=== PATIENT | female | born 1990 | race Caucasian/White ===

== ENCOUNTER 2016-10-27 20:41 | Emergency (ER) | payer OTHER ==
[~2016-10-27] VITALS: Ht 167.6 cm; Wt 68.2 kg
[2016-10-27] MEDS ORDERED: 0.9% Sodium Chloride 1,000 ML IV ONE (20:51)
--- NOTE | 2016-10-27 20:52 | ED.REPORT ---
HPI-General Illness Date of Service Oct 27, 2016 ED Provider: Shailesh Umanzor MD Pt is a 26 y/o female w/ a hx of severe autism, Angelman syndrome, presenting to the ED with caretakers due to persistent vomiting onset 1900 today. The patient initially was spitting which developed into vomiting. They report signs of associated BOSE. They deny diarrhea, hematemesis, fever, chills. They witnessed that she was holding her back earlier. There is a history of UTI's which are not consistent with today's symptoms in any way. They deny sick contacts, decreased appetite, decreased PO fluid intake. Personal history limited secondary to mental status. Nursing Notes Stated Complaint: VOMITING Nursing Notes Reviewed: Yes Allergies: Coded Allergies: No Known Allergies (Unverified Allergy, Unknown, 04/27/15) Scheduled PRN Ondansetron ODT (Zofran ODT) 4 Mg Tablet 4 MG PO Q4H PRN PRN For Nausea General Time Seen by MD: 20:49 Chief Complaint Vomiting Hx Obtained From: Patient, Nozzle Worker Arrived By: Walk-in Sudden in Onset?: No Onset Occurred: 1 - 4 hours ago Symptom Duration: Since onset Location: : Head Quality: Aching Severity: Current: Mild Severity: Maximum: Mild Past Medical History Past Medical History Angelman syndrome, ADHD Severe autism Past Surgical History Denies Smoking History Unknown if Ever Smoker Social History Lives in a house by herself with Nozzle Worker involvement Ambulatory Status Independent Review of Systems Full Review of Systems Constitutional: Denies: Chills, Fever Cardiovascular: Denies: Chest pain, Dyspnea on exertion GI: Reports: Nausea, Vomiting, Denies: Diarrhea Female: Denies: Dysuria, Urinary frequency Musculoskeletal: Reports: Back pain Neurologic: Reports: Headache, Denies: Change LOC Physical Exam Vital Signs Vital Signs Date Time Temp Pulse Resp B/P Pulse Ox O2 Delivery O2 Flow Rate FiO2 10/27/16 22:50 36.8 60 18 130/60 98 Room Air 10/27/16 21:44 128/51 10/27/16 20:57 36.9 52 20 99 Room Air Initial VS: Reviewed, Vital signs normal Head / Eyes: Atraumatic, Normocephalic, PERRL ENT: Mucous membranes moist, Conjunctiva normal, No scleral icterus Neck: Supple, Full range of motion Respiratory: Breath sounds normal, Clear to auscultation, No respiratory distress Cardiovascular: Regular rate & rhythm, Heart sounds normal, Intact distal pulses Extremities: Vascular intact, Neuro intact, No swelling, No tenderness Skin: Warm, Dry, No cyanosis Psychiatric: Mood/affect normal, Behavior normal General/Constitutional: Awake, Alert, No acute distress, Not toxic appearing Severely autistic Abdomen: Atraumatic, Soft, Non-tender, No guarding, No rebound, No distention Tolerates firm palpation over all quadrants with no significant signs of distress or tenderness Neurologic: No motor deficits NEURO: Severely autistic, at baseline according to caretakers Interpretation & Diagnostics Lab Results Interpretation Result Diagram: 10/27/16213910/27/16 214 Test 10/27/16 21:40 White Blood Count 19.3th/mm3 (3.8-10.1) Red Blood Count 4.91mil/mm3 (3.90-5.20) Hemoglobin 14.6g/dL (12.0-15.6) Hematocrit 42.8% (35.0-46.0) Mean Corpuscular Volume 87.2fL (81-100) Mean Corpuscular Hemoglobin 29.7pg (27.0-35.0) Mean Corpuscular Hemoglobin Concent 34.1% (32.0-37.0) Red Cell Distribution Width 12.8% (12.3-15.4) Platelet Count 386bil/L (150-400) Neutrophils (%) (Auto) 84.2% (40-74) Lymphocytes (%) (Auto) 7.1% (14-46) Monocytes (%) (Auto) 8.0% (4-12) Eosinophils (%) (Auto) 0.3% (0-5) Basophils (%) (Auto) 0.1% (0-3) Sodium Level 138mEq/L (134-144) Potassium Level 4.3mEq/L (3.5-5.2) Chloride Level 102mEq/L (97-108) Carbon Dioxide Level 18mmol/L (18-29) Blood Urea Nitrogen 16mg/dL (6-20) Creatinine 0.67mg/dL (0.57-1.00) Estimat Glomerular Filtration Rate 151mL/min (>59) Glucose Level 132mg/dL (60-99) Calcium Level 9.2mg/dL (8.5-10.1) Magnesium Level 1.9mg/dL (1.6-2.6) Total Bilirubin 0.4mg/dL (0.0-1.2) Aspartate Amino Transf (AST/SGOT) 25U/L (0-50) Alanine Aminotransferase (ALT/SGPT) 18U/L (0-32) Alkaline Phosphatase 64U/L (25-150) Total Protein 7.8g/dL (6.4-8.4) Albumin 4.5g/dL (3.4-5.0) Lipase 59U/L (13-60) Re-Eval/Medical Decision Med Decision/Clinical Course Pt is a 26 y/o female w/ a hx of severe autism, Angelman syndrome, presenting to the ED with caretakers due to persistent vomiting onset 1900 today. At baseline the patient is unable to provide any history and nontender to tolerate with examination or laboratory draw. Here in the emergency department she is afebrile with stable vital signs and in no apparent distress. After receiving some Zofran she tolerated PO, was smiling, interactive and without any evidence of distress or discomfort. Laboratory studies were obtained including CBC and CMP which were unremarkable except for a leukocytosis of 19. I conducted a thorough examination of the patient and found no evidence of abdominal tenderness, findings suggestive of acute surgical abdominal process or evidence of soft tissue infection. Abdominal examination was completely benign and she tolerated firm palpation in all 4 quadrants while smiling. Given her leukocytosis I strongly considered infectious processes however she was without any meningismus or fever suggestive of meningitis. I strongly considered urinary tract infection however knitted goods shaper stated that the past UTIs she is clutched at her crotch, urinated herself and had foul-smelling urine. They state that her presentation today is in no way consistent with prior urinary tract infections. After long discussion with them we opted to forego catheterized UA specimen as this would likely require physical restraint and potentially chemical restraint as well. While leukocytosis in the setting of fever raises suspicion for possible acute surgical abdominal process. Abdominal examination is completely benign after receiving Zofran she is asymptomatic. Again, obtaining CT scan of the abdomen would facilitate procedural sedation and we opted to forego this in lieu of close observation overnight with her caretakers. The long time explaining to them that we cannot definitively rule out serious causes of her presentation and therefore it is extremely informed to return immediately should she develop any changes in behavior, signs that she is in pain or fevers, ongoing vomiting or refusal to eat/drink. At this time she remains completely back at her baseline and her overall presentation does seem most consistent with gastroenteritis. I have prescribed a course of Zofran. Her knitted goods shaper seem responsible and are quite minor with her and will bring her back immediately should she develop any concerning signs or symptoms. She was discharged in good condition. Source of Hx: Nozzle Worker Time of Eval: 22:45 Re-Evaluation/Progress Note: Discussed thorough RTER instructions. No longer vomiting after Zofran. Counseled Regarding: Diagnosis, Lab results, Need for follow-up, When/why to return to ED Discharge & Departure Primary Impression: Gastroenteritis Additional Impressions: Vomiting Vomiting type: unspecified Vomiting Intractability: unspecified Nausea presence: unspecified Qualified Code: R11.10 - Vomiting, unspecified Autism Angelman syndrome Leukocytosis Leukocytosis type: unspecified Qualified Code: D72.829 - Elevated white blood cell count, unspecified Disposition: Home Discharge Condition All VS Reviewed: Yes Condition: Stable Additional Instructions: Qian was seen in the emergency room today because she has had vomiting. She had a high white blood cell count but her vital signs were otherwise normal. It sounds as if she probably has a GI illness and we have prescribed Zofran. Here in the emergency room she felt a lot better after receiving Zofran and was back to her normal self. We would have to sedate her in order to get a catheter urine specimen or a CT scan and after discussing this we opted to have her go home for close observation. This time we do not see any signs that she is suffering from something serious like appendicitis or a bacterial infection. That being said without a more thorough workup we cannot be 100% sure. Therefore, it is very important that you bring her back right away if she is having fevers, ongoing vomiting, is refusing to eat/drink, is clutching at her abdomen showing her surgical signs of a UTI. We are always here to help and do not wait to bring her back if in anyway she seems to not be her normal self. Referrals: Mark Anthony Baker MD (PCP) Scribe Attestation Portions of this note were transcribed by Stephan Wen. I, Dr. Umanzor personally performed the history, physical exam and medical decision-making; I reviewed and confirmed the accuracy of the information in the transcribed note. Signed by Danay Moreno, 10/27/162229 copies to: Mark Anthony Baker MD, Beck O MD Oct 27, 2016 20:52 STEPHAN WEN Oct 27, 2016 21:35
[2016-10-27] MEDS ORDERED: Ondansetron 2 mg/mL 2 mL Inj IVPUSH ONE (20:55)
[2016-10-27 20:57] VITALS: PULSE 52; RESP 20; O2SAT 99
[2016-10-27] MEDS ORDERED: Ondansetron 8 mg ODT Tablet PO ONE (21:25)
[2016-10-27 21:44] VITALS: BP 128/51
[2016-10-27 21:53] LABS: BASOPHILS % (AUTO) 0.1 % (0-3); EOSINOPHILS % (AUTO) 0.3 % (0-5); Mean Corpuscular Hemoglobin 29.7 pg (27.0-35.0); Mean Corpuscular Volume 87.2 fL (81-100); NEUTROPHILS % (AUTO) 84.2 % (40-74); Platelet Count 386 bil/L (150-400)
[2016-10-27 22:16] LABS: Magnesium 1.9 mg/dL (1.6-2.6)
[2016-10-27] MEDS ORDERED: ONDA4TAB9 PO (22:31)
[2016-10-27 22:50] VITALS: BP 130/60; PULSE 60; RESP 18; O2SAT 98
== END 2016-10-27 22:51 | disposition home or self-care (01) ==
LOC: SED 20:41
DX: K52.9 Noninfective gastroenteritis and colitis, unspecified (principal); D72.829 Elevated white blood cell count, unspecified; F84.0 Autistic disorder; Q93.5 Other deletions of part of a chromosome

== ENCOUNTER 2016-10-28 01:49 | Emergency (ER) | payer MEDICAID, OTHER ==
[~2016-10-28] VITALS: Ht 167.6 cm; Wt 68.2 kg
[~2016-10-28 01:49] MED LIST: ONDA4TAB9 PO
[2016-10-28] MEDS ORDERED: hydrOXYzine Inj 50 MG/1 mL SDV IM ONE ×2 (01:50→03:15)
--- NOTE | 2016-10-28 01:58 | ED.REPORT ---
HPI-NVD Date of Service Oct 28, 2016 ED Provider: Jerome Burger MD Patient is a 26 year old female with a history of autism spectrum disorder and Angelman syndrome who presents to the ED via EMS due to ongoing vomiting that began at 1900 today. Patient was seen in the yesterday evening (4 hours ago) and improved with Zofran. She has an elevated WBC at 19.3, but otherwise normal labs. Patient has a history of UTIs but due to the difficulty in obtaining a urine sample, it was decided that the patient would be discharged with close follow-up and return precautions. Her assistant athletic trainer states that she has been vomiting nonstop since she returned home. She has not had any additional Zofran , as they were not discharged home with this medication. The assistant athletic trainer states that her vomit is now brown, which is different than how her vomit appeared earlier. Her assistant athletic trainer denied diarrhea, hematemesis, fever, chill, or recent sick contacts during ED visit earlier today. History is limited by the patient' s mental status. Nursing Notes Stated Complaint: NAUSEA/VOMITING Nursing Notes Reviewed: Yes Allergies: Coded Allergies: No Known Allergies (Unverified Allergy, Unknown, 10/28/16) Scheduled PRN Ondansetron ODT (Zofran ODT) 4 Mg Tablet 4 MG PO Q4H PRN PRN For Nausea General Time Seen by MD: 01:51 Chief Complaint Nausea, Vomiting Hx Obtained From: Proof Load Mechanic Arrived By: Ambulance Onset Occurred: 5 - 8 hours ago Symptom Duration: Since onset Recent Healthcare: Recent doctor visit Similar Sx Previous: Yes Past Medical History Past Medical History Angelman syndrome, ADHD Autism Past Surgical History Denies Smoking History Unknown if Ever Smoker Social History Lives in a house by herself with Proof Load Mechanic involvement Other Social History: Local resident Ambulatory Status Independent Review of Systems Unable to Obtain ROS Mental status (limited by patient mental status) Constitutional: Denies: Chills, Fever GI: Reports: Nausea, Vomiting, Denies: Diarrhea, Hematemesis Complete sys rev & neg: except as marked. Physical Exam Initial Vital Signs Vital Signs (First) Date Time Temp Pulse Resp B/P Pulse Ox O2 Delivery O2 Flow Rate FiO2 10/28/16 03:29 37.3 82 20 118/70 95 Room Air Initial VS: Reviewed, Vital signs normal Neck: Supple, Non-tender Extremities: Vascular intact, Neuro intact, No swelling Skin: Warm, Dry, No cyanosis Neurologic: Alert, Nonfocal General/Constitutional: Awake, Alert Distress / Hydration: Positive: Dehydration mild Appearance / Presentation: Positive: Pale dry heaving Abdomen: Soft, Non-tender, No guarding, No rebound ENT: Airway patent Mouth: Positive: Mucous membranes dry Respiratory / Chest: Breath sounds NL, Breath sounds = bilat, No respiratory distress, No rales, No rhonchi, No wheezing Cardiovascular: Heart rate NL, Regular rhythm, Heart sounds NL, No murmurs Head / Eyes: Normocephalic, PERRL sunken eyeballs Interpretation & Diagnostics Lab Results Interpretation Result Diagram: 10/28/16 0400 10/28/16 0400 Test 10/28/16 04:00 White Blood Count 17.5th/mm3 (3.8-10.1) Red Blood Count 4.79mil/mm3 (3.90-5.20) Hemoglobin 14.3g/dL (12.0-15.6) Hematocrit 41.8% (35.0-46.0) Mean Corpuscular Volume 87.3fL (81-100) Mean Corpuscular Hemoglobin 29.9pg (27.0-35.0) Mean Corpuscular Hemoglobin Concent 34.2% (32.0-37.0) Red Cell Distribution Width 12.8% (12.3-15.4) Platelet Count 255bil/L (150-400) Neutrophils (%) (Auto) 95.5% (40-74) Lymphocytes (%) (Auto) 1.9% (14-46) Monocytes (%) (Auto) 2.2% (4-12) Eosinophils (%) (Auto) 0% (0-5) Basophils (%) (Auto) 0.1% (0-3) Sodium Level 138mEq/L (134-144) Potassium Level 4.1mEq/L (3.5-5.2) Chloride Level 101mEq/L (97-108) Carbon Dioxide Level 18mmol/L (18-29) Blood Urea Nitrogen 19mg/dL (6-20) Creatinine 0.64mg/dL (0.57-1.00) Estimat Glomerular Filtration Rate 159mL/min (>59) Glucose Level 149mg/dL (60-99) Calcium Level 9.2mg/dL (8.5-10.1) Magnesium Level 1.8mg/dL (1.6-2.6) Total Bilirubin 0.8mg/dL (0.0-1.2) Aspartate Amino Transf (AST/SGOT) 21U/L (0-50) Alanine Aminotransferase (ALT/SGPT) 17U/L (0-32) Alkaline Phosphatase 62U/L (25-150) Total Protein 7.6g/dL (6.4-8.4) Albumin 4.4g/dL (3.4-5.0) Lipase 25U/L (13-60) Lab Results Interpretation: Elevated white blood count Re-Eval/Medical Decision Med Decision/Clinical Course 26-year-old female who is nonverbal was seen earlier yesterday for nausea vomiting and diarrhea. She was hydrated and discharged home. Had persistent vomiting at home. She returns because of the vomiting. We were unable to get an IV and initially. Labs were drawn and are remarkable only for elevated white blood count. ODT Zofran seemed to make her problem worse. She was given hydroxyzine 50 mg IM with some relief but was still unable to take by mouth fluids well. Her care will be turned over at change of shift to the oncoming physician. She will likely need IV therapy to start a line and get some slow rehydration. Source of Hx: Old records Re-Evaluation/Progress #1: Time of Eval: 04:35 Patient Status: Condition improved Re-Evaluation/Progress Note: Rechecked the patient. She is no longer actively vomiting and is now sedated. Discussed lab results with her assistant athletic trainer. Will attempt an IV. Re-Evaluation/Progress #2: Re-Evaluation/Progress Note: Counseled Regarding: Diagnosis, Lab results Discharge & Departure Shift Change Sign-Out Patient Care Transferred: Yes Discussed Complaint(s): Yes Laboratory Evaluation: Lab evaluation discussed Additonal Information: IV hydration Impression: Primary Impression: Gastroenteritis Referrals: Mark Anthony Baker MD (PCP) Care Transferred to: Dr. Gutiérrez Care Transferred at: 06:00 Scribe Attestation Portions of this note were transcribed by Elvia Connor. I, Dr. Burger personally performed the history, physical exam and medical decision-making; I reviewed and confirmed the accuracy of the information in the transcribed note. Signed by: Danay Deshpande, 10/28/2016 0550 copies to: Mark Anthony Baker MD, Jerome Pozo MD Oct 28, 2016 01:57 Elvia Connor Oct 28, 2016 02:07
[2016-10-28] MEDS ORDERED: 0.9% Sodium Chloride 1,000 ML IV ONE ×2 (02:00→06:07)
[2016-10-28] MEDS ORDERED: Ondansetron 2 mg/mL 2 mL Inj IVPUSH PRN (02:00)
[2016-10-28] MEDS ORDERED: Ondansetron 8 mg ODT Tablet PO ONE (02:20)
[2016-10-28] MEDS ORDERED: hydrOXYzine Inj 25 MG/1 mL SDV IM ONE (02:50)
[2016-10-28 03:29] VITALS: BP 118/70; PULSE 82; RESP 20; O2SAT 95
[2016-10-28 04:09] LABS: BASOPHILS % (AUTO) 0.1 % (0-3); EOSINOPHILS % (AUTO) 0 % (0-5); MONOCYTES % (AUTO) 2.2 % (4-12); Mean Corpuscular Hemoglobin 29.9 pg (27.0-35.0); Mean Corpuscular Volume 87.3 fL (81-100); NEUTROPHILS % (AUTO) 95.5 % (40-74); Platelet Count 255 bil/L (150-400)
[2016-10-28 04:37] LABS: Magnesium 1.8 mg/dL (1.6-2.6)
[2016-10-28 09:22] LABS: APPEARANCE,URINE CLEAR (CLEAR,HAZY); COLOR,URINE YELLOW (YELLOW); OCCULT BLOOD,URINE LARGE (NEGATIVE); UROBILINOGEN,URINE NORMAL (NORMAL)
[2016-10-28 09:58] VITALS: BP 116/72; PULSE 72; RESP 13; O2SAT 98
[2016-10-28 10:10] VITALS: BP 116/72; PULSE 72; RESP 13; O2SAT 98
== END 2016-10-28 10:10 | disposition home or self-care (01) ==
LOC: EDBD 01:49 → EDUNIT# 01:49 → SED 01:49
DX: K52.9 Noninfective gastroenteritis and colitis, unspecified (principal); R51 Headache; F84.0 Autistic disorder; Q93.5 Other deletions of part of a chromosome; Z87.440 Personal history of urinary (tract) infections
CPT/HCPCS: 36415; 80053; 81000; 83690; 83735; 85025; 87086; 87088; 96360; 96361; 96372; 99285; J3410; J7030